=== PATIENT | female | born 1955 | race Caucasian/White ===

== ENCOUNTER 2023-09-09 13:24 | Outpatient (AMB) | payer BC, SELFPAY ==
--- NOTE | 2023-09-09 13:30 | A.OFFVIS_ITS ---
Vital Signs 09/09/23 13:31 Height 5 ft 4 in Weight 165 lb 5.547 oz BMI 28.4 BP 128/70 Blood Pressure Location Lt brachial Position Sitting Pulse 84 Pulse Source Pulse Oximeter Pulse Oximetry (%) 97 Oxygen Delivery Method Room Air Intake Visit Reasons: Severe Persistent Asthma Chha Required: No Allergies sulfamethoxazole [From Bactrim] Adverse Reaction (Severe, Verified 09/09/23 13:34) Rash trimethoprim [From Bactrim] Adverse Reaction (Severe, Verified 09/09/23 13:34) Rash lisinopril Adverse Reaction (Verified 09/09/23 13:34) Cough HPI Comments Details: The patient is here for pulmonary evaluation. The patient is a 68 year woman with a known history of asthma and significant allergies. Apparently her respiratory symptoms worsen while she was done in [place]. She states that while in [place] she was developing worsening cough shortness shortness of breath and chest tightness. She went to the hospital 4 times. She was initially diagnosed with bronchitis and then she was diagnosed with asthma. During the 4th evaluation to the hospital she was admitted briefly. She did have a CTA that ruled out PE although the patient did have significant mucous plugging pulmonary nodules and airspace disease in the right base. The patient also has significant lymphadenopathy. Therefore, the patient was treated and released. She was recommended to have a repeat CT scan. The patient then followed up with Allergy immunology and she was referred to us. From a respiratory status the patient is doing better. She is responding well to her current respiratory regimen. Patient still having cough. Intermittently. She did undergo pulmonary function studies which I personally reviewed demonstrating mild obstruction. In addition to that we did look at her CT scan that she had back in 2022 when she was part of the lung cancer screening program and the patient did have pulmonary nodules but no significant lymphadenopathy no significant airspace disease. [facility] Medical History (Updated 09/09/23 @ 23:17 by Juan Antonio Pemberton MD) Asthma Pulmonary nodules Pneumonia Lymphadenopathy Social History (Updated 09/09/23 @ 13:38 by TUSHAR Mckeon) Patient Tobacco Use Status: Former Tobacco user Tobacco use type: Cigarette Years Smoked: 30 Years Review of Systems Const Denies fever(s) Eyes Reports no additional complaints ENT Reports nasal congestion Card Denies chest pain and Reports dyspnea on exertion Resp Reports cough and Reports dyspnea on exertion GI Reports no additional complaints Musc Reports no additional complaints Skin/Breast Denies rash Storm/Lymph Denies lymphadenopathy Aller/Immun Reports no additional complaints Physical Exam Vital Signs: Last Vital Signs Pulse 84 09/09/23 13:31 BP 128/70 09/09/23 13:31 Pulse Ox 97 09/09/23 13:31 Oxygen Delivery Method Room Air 09/09/23 13:31 BMI result Body Mass Index 28.4 Const General: comfortable HEENT Head: Yes normocephalic Neck Neck: Yes supple Chest Chest palpation & inspection: normal inspection of the chest Resp Effort & Inspection: normal respiratory effort Auscultation: no rhonchi, no wheezes and diminished lung sounds Cardio Heart sounds: S1 normal heart sound present and S2 normal heart sound present GI Palpation (GI): Soft to palpation Skin General skin exam: no rashes or lesions noted Extrem General: Yes no clubbing, cyanosis or edema Assessment & Plan Assessment & Plan (1) Pulmonary nodules: Code(s): R91.8 - Other nonspecific abnormal finding of lung field Category: Medical (2) Pneumonia: Code(s): J18.9 - Pneumonia, unspecified organism Category: Medical Qualifiers: Pneumonia type: due to unspecified organism Laterality: right Lung location: lower lobe of lung Qualified Code(s): J18.9 - Pneumonia, unspecified organism (3) Lymphadenopathy: Code(s): R59.1 - Generalized enlarged lymph nodes Category: Medical (4) Asthma: Code(s): J45.909 - Unspecified asthma, uncomplicated Category: Medical Qualifiers: Asthma severity: moderate Asthma persistence: persistent Asthma complication type: uncomplicated Qualified Code(s): J45.40 - Moderate persistent asthma, uncomplicated Plan start Dulera BID Stop Symbicort NADER as needed Bloodwork CT chest in 4 weeks Orders: Orders Basic Metabolic Panel Today J18.9 - Pneumonia, unspecified organism, R59.1 - Generalized enlarged lymph nodes, R91.8 - Other nonspecific abnormal finding of lung field Immunoglobulin E Today J18.9 - Pneumonia, unspecified organism, R59.1 - Generalized enlarged lymph nodes, R91.8 - Other nonspecific abnormal finding of lung field CT chest w IV con 3 Weeks J18.9 - Pneumonia, unspecified organism, R59.1 - Generalized enlarged lymph nodes, R91.8 - Other nonspecific abnormal finding of lung field Complete Blood Count Auto Diff Today J18.9 - Pneumonia, unspecified organism, R59.1 - Generalized enlarged lymph nodes, R91.8 - Other nonspecific abnormal finding of lung field Immunoglobulins,IgG IgA IgM Today J18.9 - Pneumonia, unspecified organism, R59.1 - Generalized enlarged lymph nodes, R91.8 - Other nonspecific abnormal finding of lung field Medications: New mometasone-formoterol 200-5 mcg/actuation (Dulera) 2 puffs inhalation Q12H 30 days 13 grams 11RF Coding Level of Care Code New Pt Level 4 (86425) Diagnoses Pulmonary nodules R91.8 Pneumonia of right lower lobe due to infectious organism J18.9 Pneumonia type: due to unspecified organism Laterality: right Lung location: lower lobe of lung Lymphadenopathy R59.1 Moderate persistent asthma without complication J45.40 Asthma severity: moderate Asthma persistence: persistent Asthma complication type: uncomplicated Time Spent (min) 38
[2023-09-09 13:31] VITALS: BP 128/70; PULSE 84; O2SAT 97; BMI 28.4
== END 2023-09-09 14:06 | disposition home or self-care (01) ==
PROVIDERS: PCP Internal Medicine; Referring Provider Allergy & Immunology; Visit Provider Hospitalist
DX: R91.8 Other nonspecific abnormal finding of lung field (principal); J18.9 Pneumonia, unspecified organism; R59.1 Generalized enlarged lymph nodes; J45.40 Moderate persistent asthma, uncomplicated
CPT/HCPCS: 99204

== ENCOUNTER → 2023-09-09 13:24 | Outpatient (BNVA) | payer BC, SELFPAY | PROVIDERS: PCP Internal Medicine; Referring Provider Allergy & Immunology; Visit Provider Hospitalist ==

== ENCOUNTER 2023-11-19 08:54 | Outpatient (AMB) | payer BC, SELFPAY ==
[2023-11-19 09:06] VITALS: BP 122/70; PULSE 67; O2SAT 99; BMI 28.3
--- NOTE | 2023-11-19 09:06 | MHC.OFFVIS ---
Vital Signs 11/19/23 09:06 Height 5 ft 4 in Weight 165 lb BMI 28.3 BP 122/70 Blood Pressure Location Lt brachial Position Sitting Pulse 67 Pulse Source Pulse Oximeter Pulse Oximetry (%) 99 Oxygen Delivery Method Room Air Intake Visit Reasons: Asthma/Chest xray follow up [employer] Reverser Required: No Allergies sulfamethoxazole [From Bactrim] Adverse Reaction (Severe, Verified 11/19/23 09:08) Rash trimethoprim [From Bactrim] Adverse Reaction (Severe, Verified 11/19/23 09:08) Rash lisinopril Adverse Reaction (Verified 11/19/23 09:08) Cough HPI Comments Details: The patient is a 68 year woman with a known history of asthma and significant allergies. Apparently her respiratory symptoms worsen while she was done in [place]. She states that while in [place] she was developing worsening cough shortness shortness of breath and chest tightness. She went to the hospital 4 times. She was initially diagnosed with bronchitis and then she was diagnosed with asthma. During the 4th evaluation to the hospital she was admitted briefly. She did have a CTA that ruled out PE although the patient did have significant mucous plugging pulmonary nodules and airspace disease in the right base. The patient also has significant lymphadenopathy. Therefore, the patient was treated and released. She was recommended to have a repeat CT scan. The patient then followed up with Allergy immunology and she was referred to us. From a respiratory status the patient is doing better. She is responding well to her current respiratory regimen. Patient still having cough. Intermittently. She did undergo pulmonary function studies which I personally reviewed demonstrating mild obstruction. In addition to that we did look at her CT scan that she had back in 2022 when she was part of the lung cancer screening program and the patient did have pulmonary nodules but no significant lymphadenopathy no significant airspace disease. 11/19/2023 the patient is here for a pulmonary follow-up visit. The patient overall is feeling better. Respiratory status is better. She has been using the Dulera as needed. Although now going to [place] she feels that she will do better on the Wixela. He is also more financially reasonable for her. She will start Wixela day then she can use her rescue inhaler as needed. She knows not to use the Dulera along with Wixela. We could not get the CAT scan covered by insurance but we did have her get an x-ray. No evidence of any acute disease which is reassuring. I do not appreciate any hilar prominence suggest lymphadenopathy. 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 She will follow-up Cardiology. A CT will be helpful to better address that. Hopefully she can get that approved through her occupational health physiotherapist and if so she can let me know so I can look at her lungs. Her last CT scan of the chest was reassuring back in 2022. The patient did undergo blood work which we did review kidney function is normal. Although we did have to use any contrast because the cancel CT scan. In addition to that her pulmonary function studies are reassuring. She does have a mild obstruction although probably better now that her respiratory status is better. Still though the use of the Wixela will be helpful least once a day. She should rinse her mouth well. She can follow-up after she returns from [place] in the spring of 2024. If she has any issues prior to that she will call for an earlier assessment. [facility] Medical History (Updated 11/21/23 @ 17:52 by Juan Antonio Pemberton MD) Aortic ectasia Asthma Pulmonary nodules Pneumonia Lymphadenopathy Social History (Updated 09/09/23 @ 13:38 by TUSHAR Mckeon) Patient Tobacco Use Status: Former Tobacco user Tobacco use type: Cigarette Years Smoked: 30 Years Review of Systems Const Denies fever(s) Eyes Reports no additional complaints ENT Reports nasal congestion Card Denies chest pain and Reports dyspnea on exertion Resp Reports cough and Reports dyspnea on exertion GI Reports no additional complaints Musc Reports no additional complaints Skin/Breast Denies rash Storm/Lymph Denies lymphadenopathy Aller/Immun Reports no additional complaints Physical Exam Vital Signs: Last Vital Signs Pulse 67 11/19/23 09:06 BP 122/70 11/19/23 09:06 Pulse Ox 99 11/19/23 09:06 Oxygen Delivery Method Room Air 11/19/23 09:06 BMI result Body Mass Index 28.3 Const General: comfortable HEENT Head: Yes normocephalic Neck Neck: Yes supple Chest Chest palpation & inspection: normal inspection of the chest Resp Effort & Inspection: normal respiratory effort Auscultation: no rhonchi, no wheezes and diminished lung sounds Cardio Heart sounds: S1 normal heart sound present and S2 normal heart sound present GI Palpation (GI): Soft to palpation Skin General skin exam: no rashes or lesions noted Extrem General: Yes no clubbing, cyanosis or edema Assessment & Plan Assessment & Plan (1) Pulmonary nodules: Code(s): R91.8 - Other nonspecific abnormal finding of lung field Category: Medical (2) Pneumonia: Code(s): J18.9 - Pneumonia, unspecified organism Category: Medical Qualifiers: Laterality: right Lung location: lower lobe of lung Pneumonia type: due to unspecified organism Qualified Code(s): J18.9 - Pneumonia, unspecified organism (3) Lymphadenopathy: Code(s): R59.1 - Generalized enlarged lymph nodes Category: Medical (4) Asthma: Code(s): J45.909 - Unspecified asthma, uncomplicated Category: Medical Qualifiers: Asthma complication type: uncomplicated Asthma persistence: persistent Asthma severity: moderate Qualified Code(s): J45.40 - Moderate persistent asthma, uncomplicated (5) Aortic ectasia: Code(s): I77.819 - Aortic ectasia, unspecified site Category: Medical Plan stop Dulera BID continue Wixela NADER as needed D/W cardiolgy re CT angio to assess Aorta F/U Spring 2024 Coding Level of Care Code Est Pt Level 4 (83525) Diagnoses Pulmonary nodules R91.8 Pneumonia of right lower lobe due to infectious organism J18.9 Laterality: right Lung location: lower lobe of lung Pneumonia type: due to unspecified organism Lymphadenopathy R59.1 Moderate persistent asthma without complication J45.40 Asthma complication type: uncomplicated Asthma persistence: persistent Asthma severity: moderate Aortic ectasia I77.819 Time Spent (min) 17
== END 2023-11-19 09:38 | disposition home or self-care (01) ==
PROVIDERS: PCP Internal Medicine; Visit Provider Hospitalist
DX: R91.8 Other nonspecific abnormal finding of lung field (principal); J18.9 Pneumonia, unspecified organism; R59.1 Generalized enlarged lymph nodes; J45.40 Moderate persistent asthma, uncomplicated; I77.819 Aortic ectasia, unspecified site
CPT/HCPCS: 99214

== ENCOUNTER → 2023-11-19 08:54 | Outpatient (BNVA) | payer BC, SELFPAY | PROVIDERS: PCP Internal Medicine; Visit Provider Hospitalist ==

== ENCOUNTER 2024-08-29 08:48 | Outpatient (AMB) | payer BC, SELFPAY ==
[2024-08-29 08:49] VITALS: BP 124/72; PULSE 78; O2SAT 99; BMI 28.6
--- NOTE | 2024-08-29 08:49 | MHC.OFFVIS ---
Vital Signs 08/29/24 08:49 Height 5 ft 4 in Weight 166 lb 7.184 oz BMI 28.6 BP 124/72 Blood Pressure Location Lt brachial Position Sitting Pulse 78 Pulse Source Pulse Oximeter Pulse Oximetry (%) 99 Oxygen Delivery Method Room Air Intake Visit Reasons: Asthma Clinical Quality Analyst Required: No Accompanied by: Self / Same As Patient Allergies sulfamethoxazole [From Bactrim] Adverse Reaction (Severe, Verified 08/29/24 08:52) Rash trimethoprim [From Bactrim] Adverse Reaction (Severe, Verified 08/29/24 08:52) Rash lisinopril Adverse Reaction (Verified 08/29/24 08:52) Cough HPI Comments Details: The patient is a 69 year woman with a known history of asthma and significant allergies. Apparently her respiratory symptoms worsen while she was done in [place]. She states that while in [place] she was developing worsening cough shortness shortness of breath and chest tightness. She went to the hospital 4 times. She was initially diagnosed with bronchitis and then she was diagnosed with asthma. During the 4th evaluation to the hospital she was admitted briefly. She did have a CTA that ruled out PE although the patient did have significant mucous plugging pulmonary nodules and airspace disease in the right base. The patient also has significant lymphadenopathy. Therefore, the patient was treated and released. She was recommended to have a repeat CT scan. The patient then followed up with Allergy immunology and she was referred to us. From a respiratory status the patient is doing better. She is responding well to her current respiratory regimen. Patient still having cough. Intermittently. She did undergo pulmonary function studies which I personally reviewed demonstrating mild obstruction. In addition to that we did look at her CT scan that she had back in 2022 when she was part of the lung cancer screening program and the patient did have pulmonary nodules but no significant lymphadenopathy no significant airspace disease. 11/19/2023 the patient is here for a pulmonary follow-up visit. The patient overall is feeling better. Respiratory status is better. She has been using the Dulera as needed. Although now going to [place] she feels that she will do better on the Wixela. He is also more financially reasonable for her. She will start Wixela day then she can use her rescue inhaler as needed. She knows not to use the Dulera along with Wixela. We could not get the CAT scan covered by insurance but we did have her get an x-ray. No evidence of any acute disease which is reassuring. I do not appreciate any hilar prominence suggest lymphadenopathy. 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 She will follow-up Cardiology. A CT will be helpful to better address that. Hopefully she can get that approved through her airport operations officer and if so she can let me know so I can look at her lungs. Her last CT scan of the chest was reassuring back in 2022. The patient did undergo blood work which we did review kidney function is normal. Although we did have to use any contrast because the cancel CT scan. In addition to that her pulmonary function studies are reassuring. She does have a mild obstruction although probably better now that her respiratory status is better. Still though the use of the Wixela will be helpful least once a day. She should rinse her mouth well. She can follow-up after she returns from [place] in the spring. If she has any issues prior to that she will call for an earlier assessment. 08/29/2024 the patient is here for pulmonary follow-up visit. Overall she is doing great. The patient has continued to use her respiratory medications as prescribed. She has not required her rescue inhaler typically less than 2 times a month. Denies any recent sicknesses. She has been fully vaccinated with all her important vaccines from a respiratory standpoint. The patient did have a recent CT scan of the chest which we personally reviewed. No evidence of any pulmonary nodules or lymphadenopathy appreciated. 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 She did follow-up with cardiology and they did increase her blood pressure medication, metoprolol which is helping control the blood pressure and is also not affecting her breathing which is reassuring. She does use it Wixela. She continues use her rescue inhaler as needed. The patient follow-up in a year's time she has any issues prior to that she will call for an earlier assessment. [facility] Medical History (Updated 11/21/23 @ 17:52 by Juan Antonio Pemberton MD) Aortic ectasia Asthma Pulmonary nodules Pneumonia Lymphadenopathy Social History Patient Tobacco Use Status: Former Tobacco user Tobacco use type: Cigarette Years Smoked: 30 Years Review of Systems Const Denies chills, Denies fatigue, Denies fever(s), Denies weight gain and Denies weight loss Eyes Reports no additional complaints ENT Denies dizziness Card Denies chest pain, Denies leg edema, Denies lightheadedness, Denies palpitations, Denies dyspnea on exertion, Denies orthopnea and Denies other Resp Denies cough and Denies dyspnea on exertion GI Denies hematochezia and Denies change in stool character Musc Denies abnormal gait, Denies muscle weakness, Denies numbness, Denies radiating pain into limb and Denies tingling Skin/Breast Denies rash Neuro Denies abnormal gait, Denies dizziness, Denies numbness and Denies tingling Endo Denies fatigue and Denies palpitations Storm/Lymph Denies lymphadenopathy Aller/Immun Reports no additional complaints Physical Exam Vital Signs: Last Vital Signs Pulse 78 08/29/24 08:49 BP 124/72 08/29/24 08:49 Pulse Ox 99 08/29/24 08:49 Oxygen Delivery Method Room Air 08/29/24 08:49 BMI result Body Mass Index 28.6 Const General: comfortable HEENT Head: Yes normocephalic Neck Neck: Yes supple Chest Chest palpation & inspection: normal inspection of the chest Resp Effort & Inspection: normal respiratory effort Auscultation: clear to auscultation bilaterally, no rhonchi and no wheezes Cardio Heart sounds: S1 normal heart sound present and S2 normal heart sound present GI Palpation (GI): Soft to palpation Skin General skin exam: no rashes or lesions noted Extrem General: Yes no clubbing, cyanosis or edema Assessment & Plan Assessment & Plan (1) Pulmonary nodules: Code(s): R91.8 - Other nonspecific abnormal finding of lung field Category: Medical (2) Lymphadenopathy: Code(s): R59.1 - Generalized enlarged lymph nodes Category: Medical (3) Asthma: Code(s): J45.909 - Unspecified asthma, uncomplicated Category: Medical Qualifiers: Asthma complication type: uncomplicated Asthma persistence: persistent Asthma severity: moderate Qualified Code(s): J45.40 - Moderate persistent asthma, uncomplicated (4) Aortic ectasia: Code(s): I77.819 - Aortic ectasia, unspecified site Category: Medical Plan continue Wixela NADER as needed F/U with cardiolgy F/U 1 yr Coding Level of Care Code Est Pt Level 4 (15122) Diagnoses Pulmonary nodules R91.8 Lymphadenopathy R59.1 Moderate persistent asthma without complication J45.40 Asthma complication type: uncomplicated Asthma persistence: persistent Asthma severity: moderate Aortic ectasia I77.819 Time Spent (min) 16
--- OUTSIDE RECORDS SUMMARY | 2024-08-29 09:13 | XMS_ITS | Patient Health Record ---
Author Organization [facility] Address [address] [address] Care Team Providers Care Maintainability Engineer Name Role Phone AILYN LOPEZ, MARIYA Primary Care Provider Un available Valeri Tirado Unavailable [phone] Allergies Allergen (clinical drug ingredient) Drug/Non Drug Allergy documented on EMR Reaction Allergy Type Onset Date Status sulfamethoxazole / trimethoprim BACTRIM Skin Rash Drug Allergy Active lisinopril Lisinopril Coughing Drug Allergy Activ e Reason For Referral No Information Medications Medication SIG (Take, Route, Frequency, Duration) Notes Start Date End Date Status Tretinoin Active Restasis 0.05 % 1 drop into affected eye Ophthalmic Twice a day Active EPINEPHrine 0.3 MG/0.3ML Injection for 30 Active Estradiol 10 MCG 1 tablet Vaginal Two times a Week for 90 days 08/10/2024 Active Estradiol 10 MCG 1 tablet Vaginal Two times a Week for 90 days 08/09/2023 Active Fish Oil 1000 MG 1 capsule Orally 1400mg Active Amoxicillin 500 MG 4 capsule Orally Yvonne or to Procedures Active Magnesium 400 MG as directed Orally Active Metoprolol Succinate ER 25 MG 1 1/2 tablet Oral Once a day for 90 days Active Montelukast Sodium 10 MG Oral for 90 Days Active Astepro 205.5 MCG/SPRAY 2 sprays in each nostril Nasally Once a day for 30 day(s) 08/09/2023 Active Vitamin D3 250 MCG (74051 UT) 1 tablet Orally daily 08/02/2013 Active Atorvastatin Calcium 20 MG Oral for 90 Active Fluticasone Propionate Active Albuterol Sulfate HFA 108 (90 Base) MCG/ACT Inhalation for 25 Days Active Social History Tobacco Use: Social History Observation Description Date Details (start date - stop date) Former Smoker NA - NA Sexual History Question Answer Notes Had sex in the past 12 months (vaginal, oral, or anal)? Yes with Men only Prevention strategies discussed: Other AUDIT-C (Standard) Question Answer Notes Did you have a drink contain ing alcohol in the past year? Yes How often did you have a dri nk containing alcohol in the past year? 2 to 4 times a month (2 points) How many drinks did you have on a typical day when you were drinking in the past year? 1 or 2 drinks (0 point) How often did you have six o r more drinks on one occasion in the past year? Never (0 point) Points 2 Interpretation Negative Tobacco Control (Standard) Question Answer Notes Tobacco use: Former smoker How long has it been since you last smoked? Grea ter than 10 years Section Notes: MARITAL STATUS: CHILDREN: 2 Children LIVES WITH: spouse OCCUPATION: employed full-time NUTRITION: average diet EXERCISE: regular walking SEXUAL ACTIVITY: monogamous relationship. CONTRACEPTION: menopause SMOKING: Former smoker ALCOHOL: socially drinks alcohol TEXT MESSAGING WHILE DRIVING: no SUNSCREEN: yes ILLICIT DRUGS: no SEATBEALT: yes MARITAL STATUS: CHILDREN: 2 Children LIVES WITH: spouse OCCUPATION: employed full-time NUTRITION: average diet EXERCISE: regular walking SEXUAL ACTIVITY: monogamous relationship. CONTRACEPTION: menopause SMOKING: Former smoker ALCOHOL: socially drinks alcohol TEXT MESSAGING WHILE DRIVING: no SUNSCREEN: yes ILLICIT DRUGS: no SEATBEALT: yes Problems Problem Type SNOMED Code ICD Code Onset Dates Problem Status W/U Status Risk Notes Problem Menopause (869598051) Menopausal and female climacteric states (N95.1) Active confirmed Problem Postmenopausal atrophic vaginitis (53775176) Postmenopausal atrophic vaginitis (N95.2) Active confirmed Problem SI - Stress incontinence (42156356) Stress incontinence (female) (male) (N39.3) Active confirmed Problem Uncomplicated asthma (disorder) (674726520) Unspecified asthma, uncomplicated (J45.909) Active confirmed Problem Vulvovaginitis (disorder) (72284692) Unspecified vaginitis and vulvovaginitis (616.10) Active confirmed Diag Problem Endometriosis (175159265) Endometriosis, site unspecified (617.9) Active confirmed Major Problem Postmenopausal bleeding (31537315) Postmenopausal bleeding (627.1) Active confirmed Major Problem Menopausal symptom (46574882) Symptomatic menopausal or female climacteric states (627.2) Active confirmed Major Problem Osteoarthritis (765484725) Osteoarthrosis, unspecified whether generalized or localized, unspecified site (715.90) Active confirmed Major Problem Gynecological examination normal (488789583610962) Routine gynecological examination (V72.31) Active confirmed Major Problem Screening for malignant neoplasm of colon (930466230) Special screening for malignant neoplasms, colon (V76.51) Active confirmed Major Vital Signs Temperature 97.4 degrees Fahrenheit 08/10/2024 Blood pressure diastolic 88 mm Hg 08/10/2024 Height 64 in 08/10/2024 Blood pressure systolic 142 mm Hg 08/10/2024 Weight 166 lbs 08/10/2024 BMI 28.49 kg/m2 08/10/2024 Encounters Encounter Location Date Provider Diagnosis [address] [place] [address] 08/10/2024 Valeri Tirado Encounter for screening mammogram for malignant neoplasm of breast Z12.31 ; Encounter for screening for osteoporosis Z13.820 ; Postmenopausal atrophic vaginitis N95.2 and Encounter for gynecological examination (general) (routine) without abnormal findings Z01.419 Assessments Encounter Date Diagnosis (ICD Code) Assessment Notes Treatment Notes Treatment Clinical Notes Section Notes 08/10/2024 Encounter for screening mammogram for malignant neoplasm of breast (ICD-10 - Z12.31) REGULAR MAMMOGRAMS AND SBE'S WERE RECOMMENDED. 08/10/2024 Encounter for screening for osteoporosis (ICD-10 - Z13.820) BONE DENSITY WAS ORDERED. 08/10/2024 Postmenopausal atrophic vaginitis (ICD-10 - N95.2) CONTINUE ESTRADIOL TABS 10 MCG TWICE WEEKLY. 08/10/2024 Encounter for gynecological examination (general) (routine) without abnormal findings (ICD-10 - Z01.419) NO PAP TEST, DUE IN 2026. Plan Of Treatment Pending Test Test Name Order Date MAMMOGRAM, SCREENING 06/16/2021 MAMMOGRAM, SCREENING 08/05/2022 MAMMOGRAM, SCREENING 08/09/2023 MAMMOGRAM, SCREENING 08/10/2024 Urinalysis 04/16/2016 Urinalysis 03/30/2018 THIN PREP,HPV (>29YR)(SCRN) 04/16/2016 BONE DENSITY 08/10/2024 BONE DENSITY 03/30/2018 BONE DENSITY 06/02/2019 BONE DENSITY 06/06/2020 MM Digital Mammo Screening 06/16/2021 MM Digital Mammo Screening 08/05/2022 MM Digital Mammo Screening 06/06/2020 MM Digital Mammo Screening 08/10/2024 MM Digital Mammo Screening 08/09/2023 Next Appt Details Provider Name:Valeri aguero, 08/13/2025 09:00:00 AM, [address] [facility], [address], [place], [address], Insurance Providers Payer Name Payer Address Payer Phone Subscriber Number Group Number Insured Name Patient Relationship to Insured Coverage Start Date Coverage End Date [employer] MEDICARE PPO [address] [place] [address] [phone] [id number] FRANCISCO JUDD Self - patient is the insured Medical (General) History Medical History History ICD Code Acute vaginitis N76.0 Menopausal and female climacteric states N95.1 Unspecified osteoarthritis, unspecified site M19.90 Endometriosis, unspecified N80.9 Postmenopausal bleeding N95.0 Thoracic Anuersym Stress incontinence (female) (male) N39. 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
== END 2024-08-29 10:48 | disposition home or self-care (01) ==
LOC: HO.HPS 08:49
PROVIDERS: PCP Internal Medicine; Visit Provider Hospitalist
DX: R91.8 Other nonspecific abnormal finding of lung field (principal); R59.1 Generalized enlarged lymph nodes; J45.40 Moderate persistent asthma, uncomplicated; I77.819 Aortic ectasia, unspecified site
CPT/HCPCS: 99214

== ENCOUNTER → 2024-08-29 08:48 | Outpatient (BNVA) | payer BC, SELFPAY | PROVIDERS: PCP Internal Medicine; Visit Provider Hospitalist | DX: Z13.89 Encounter for screening for other disorder (principal) ==